=== PATIENT | male | born 1945 | race Caucasian/White ===

== ENCOUNTER 2019-10-01 06:46 | Day surgery (SDC) | payer OTHER ==
[2019-09-26 13:56] LABS: Protime INR 1.71
--- NOTE | 2019-09-26 14:04 | RAD REPORT ---
EXAM DESCRIPTION: RAD - Chest Pa And Lat (2 Views) - 09/26/2019 1:49 pm CLINICAL HISTORY: preop Chest pain. COMPARISON: No comparisons FINDINGS: Small right pleural effusion is seen with linear opacities in the right lung base likely r epresenting atelectasis or infiltrate. The lungs are otherwise mildly emphysematous clear. Heart is m ildly enlarged with prominent pericardial calcification noted. No displaced fractures. IMPRESSION: Prominent pericardial calcification noted suggesting prior pericarditis. Small right pleural effusion is noted with right base infiltrate or atelectasis.
[2019-10-01] MEDS ORDERED: NA CHLORIDE 0.9% 500 ML ONE (07:18)
[2019-10-01 07:45] LABS: Lymphocytes % 16.8 % (15.3-44.8); MPV 11.4 fL (7.6-11.3); RBC Red Blood Cell Count 4.93 M/uL (4.33-5.43)
[2019-10-01 07:48] LABS: Potassium 4.4 mmol/L (3.5-5.1)
[2019-10-01] MEDS ORDERED: LIDOCAINE 1% MPF 30 ML VIAL ONE (08:54)
[2019-10-01] MEDS ORDERED: HEPA 1000U/500MLS 2,000 UNIT/1,000 ML BAG IV ONE (08:54)
[2019-10-01] MEDS ORDERED: ACETYLCYST 20% 4 ML VIAL IH ONE ×2 (09:20→11:26)
[2019-10-01] MEDS ORDERED: HEPARIN 5000 UNIT/ML 1 ML VIAL ONE (09:24)
[2019-10-01] MEDS ORDERED: MIDAZOLAM HCL 2 MG/2 ML INJ ONE ×3 (09:24→09:50)
[2019-10-01] MEDS ORDERED: FENTANYL CITR 100 MCG/2 ML ONE (09:24)
[2019-10-01] MEDS ORDERED: NITROGLYCERIN/D5W 25 MG/250 ML BTL IV ONE (09:25)
[2019-10-01] MEDS ORDERED: ATROPINE SULF 1 MG/10 ML SYR IV ONE (09:25)
[2019-10-01] MEDS ORDERED: NA CHLORIDE 0.9% 0 ML ONE (09:25)
[2019-10-01] MEDS ORDERED: NITROGLYCERIN 100 MCG/ML SYR (for cath lab use only) IV ONE (09:25)
[2019-10-01] MEDS ORDERED: NICARDIPINE HCL 25 MG/10 ML IV ONE (09:25)
[2019-10-01] MEDS ORDERED: ACETYLCYST 6,000 MG/30 ML VIAL PO ONE (11:04)
[2019-10-01 12:13] VITALS: BP 125/56; TEMP 98.6
[2019-10-01 12:16] VITALS: O2SAT 98
--- NOTE | 2019-10-01 12:26 | OP ---
Surgeon: Vishnu Paula MD Procedure: Left heart catheterization with coronary and left ventricular angiography. Findings: Patient has normal coronary arteries, normal right dominant system. 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 Ejection fraction, wall mot ion and all of the pressures were normal. So, we have a false positive nuclear stress test indicatin g CAD. Procedure In Detail: The patient was brought to the [facility] in a fasting state, sedated wit h Versed and fentanyl, prepared and draped in usual sterile fashion. Right radial approach was used. Right radial artery tissues were anesthetized with 1% lidocaine. The artery was entered using a 21 -gauge needle. We cannulated the artery with a 0.021 inch diameter guidewire and placed a 5/6-Persian Terumo radial sheath in place. I flushed it and administered the radial cocktail. We were able to guide a TIG catheter using a short radius J-tip Terumo Glidewire. There was a radial loop that gave us a little bit of difficulty, but once we navigated that, the rest of the procedure went nicely. We took pictures of right coronary, left coronary, left ventricle all with the TIG catheter at the end of the procedure when the decision was made not to do an intervention. We withdrew the catheter over a J-wire, flushed the sheath and removed the sheath and closed the arteriotomy using a TR band. Braille Teacher: Konrad Dolan. Estimated Blood Loss: 5 mL. Complications: None. KALI/LYNDON Voice ID: [id number] Report ID: [id number]
== END 2019-10-01 12:16 | disposition home or self-care (01) ==
LOC: CCL 06:46
PROVIDERS: ATTEND Internal Medicine
PROC: 4A023N7 Measurement of Cardiac Sampling and Pressure, Left Heart, Percutaneous Approach (ICD-10-PCS; principal; 2019-10-01)
PROC: B201YZZ Plain Radiography of Multiple Coronary Arteries using Other Contrast (ICD-10-PCS; 2019-10-01)
PROC: B205YZZ Plain Radiography of Left Heart using Other Contrast (ICD-10-PCS; 2019-10-01)
DX: I25.10 Atherosclerotic heart disease of native coronary artery without angina pectoris (principal); E78.2 Mixed hyperlipidemia; I48.0 Paroxysmal atrial fibrillation; I10 Essential (primary) hypertension
CPT/HCPCS: 85025; 80048; 36415 ×2; 85610; 82947; 85730; 71046; 93458; C1893; J1644; J2250 ×3; J3010; J7040; J0583